=== PATIENT | female | born 1965 | race Caucasian/White ===

== ENCOUNTER 2021-11-26 12:07 | Emergency (ER) | payer OTHER, SELFPAY ==
--- NOTE | ~2021-11-26 | XR_ITS ---
EXAMINATION: XR chest 2V DATE: 11/26/2021 12:42 INDICATION: Cough TECHNIQUE: PA and lateral views of the chest are obtained. COMPARISON: None available FINDINGS: There are minimal airspace opacities in the perihilar regions and lung bases. There is no p leural effusion or pneumothorax. The cardiomediastinal silhouette is normal. There is moderate thorac ic spondylosis. IMPRESSION: 1. Bilateral perihilar and bibasilar airspace opacities, consistent with atelectasis versus pneumonia versus pulmonary edema. Reviewed, dictated and finalized at location A. IMPRESSION: 1. Bilateral perihilar and bibasilar airspace opacities, consistent with atelec tasis versus pneumonia versus pulmonary edema.
--- NOTE | 2021-11-26 12:11 | ED.URI ---
HPI - URI/Sore Throat General Chief Complaint: Upper Respiratory Infection Stated Complaint: cough with tight chest and ears Time Seen by Provider: 11/26/21 12:35 Source: patient and RN notes reviewed Mode of arrival: ambulatory Limitations: no limitations History of Present Illness HPI Narrative: 48-year-old female with history of asthma presents with concern for 3 to 4-day history of coughing, shortness of breath, chest heaviness and tightness, nasal congestion, ear pain and pressure. She reports her cough is productive. Reports she has been using her albuterol inhaler approximately 10 times per day. She denies fever, body aches, chills, sweats. Reports [id number] medications are not relieving her symptoms. Reports a history of pneumonia and bronchitis MD elicited complaint: cough and sore throat Related Data Home Medications Medication Instructions Recorded Confirmed Cymbalta 11/26/21 furosemide 11/26/21 gabapentin 11/26/21 hydrocodone-acetaminophen 11/26/21 meloxicam 11/26/21 potassium 11/26/21 Allergies Allergy/AdvReac Type Severity Reaction Status Date / Time No Known Allergies Allergy Unverified 11/26/21 12:26 Review of Systems Review of Systems: CONSTITUTIONAL: Reports malaise. Denies chills, sweats, or fever. EYES: Denies visual changes, redness, or discharge. ENT: Reports rhinorrhea, congestion, otalgia CARDIOVASCULAR: Denies chest pain, palpitations, or edema. RESPIRATORY: Reports persistent cough, chest heaviness, chest congestion, dyspnea. GASTROINTESTINAL: Denies abdominal pain, nausea, vomiting, diarrhea SKIN: Denies rash or itching. MUSCULOSKELETAL: Denies myalgia. NEUROLOGIC: Denies headache. All systems reviewed & are unremarkable except as noted in HPI and below [facility] Comments At time of signature, agree with nursing past medical, surgical, social and family history. There is no relevant family history pertinent to the presenting complaint Exam Narrative: GENERAL: Nontoxic-appearing and in no acute distress. HEAD: Normocephalic EYES: PERRLA, conjunctivae clear ENT: Nares clear, turbinates edematous and erythematous, clear discharge. Mucous membranes moist. TM not visible due to excess cerumen bilaterally; no tragal tenderness. Oropharynx not erythematous without lesions. Tonsils not enlarged and without exudate, no drooling, no hoarseness, no trismus, uvula midline. NECK: Supple. No lymphadenopathy CHEST: Clear to auscultation, breath sounds equal. No wheezing, rhonchi, rales, or stridor. No respiratory distress, speaks in full sentences. Cough noted HEART: Regular rate and rhythm. No murmur heard. SKIN: Warm, dry, no rash. NEURO: Alert and oriented x3. PSYCH: Normal mood and affect Course Course Emergency Course: Patient advised on ways to loosen and remove excess earwax at home. Patient is aware of diagnosis, understands and agrees to treatment plan. Anticipatory guidance given. Patient agrees to follow-up as directed and is aware of reasons to seek care at the emergency department. Portions of this record may have been created with voice recognition software Level of Care: Express Care Visit Vital Signs Vital signs: Reviewed. MDM - URI/Sore Throat MDM Narrative Medical decision making narrative: Differential diagnosis considered: Randall virus, strep pharyngitis, allergic rhinitis, upper respiratory tract infection, sinusitis, rhinosinusitis, nasopharyngitis. viral pharyngitis, otitis media, otitis externa, pneumonia, bronchitis, viral cough syndrome, viral syndrome, and influenza. Exam findings show no acute concerns or changes; patient is non-toxic appearing and is in no distress. Patient is appropriate for outpatient treatment and follow-up. Lab Data Attestation: I reviewed the patient's lab results. Critical Care Time Critical Care Time Critical Care Time: No Discharge Plan Discharge Clinical Impression: Abnormal chest x-ray Patient Disposition: Home,
[2021-11-26 12:16] VITALS: BP 133/55; PULSE 77; RESP 20; TEMP 36.7; O2SAT 97
== END 2021-11-26 13:08 | disposition home or self-care (01) ==
PROVIDERS: Emergency Provider Nurse Practitioner
DX: R91.8 Other nonspecific abnormal finding of lung field (principal); Z20.822 Contact with and (suspected) exposure to COVID-19
CPT/HCPCS: 71046; 87426; 87804; 99203; C9803; G0463

== ENCOUNTER 2022-04-09 12:26 | Emergency (ER) | payer OTHER, SELFPAY ==
[2022-04-09 12:30] VITALS: BP 147/78; PULSE 79; RESP 18; TEMP 36.8; O2SAT 97
--- NOTE | 2022-04-09 12:36 | ED.EAR ---
HPI - Ear Problem General Stated complaint: Ears cant hear Time Seen by Provider: 04/09/22 12:35 Source: patient Mode of arrival: ambulatory Limitations: no limitations History of Present Illness HPI Narrative: Erlinda is a 56-year-old female patient presenting to the clinic today with complaints of difficulty hearing. She reports that this is been ongoing for approximately 1 week. States she has tried to clean out her ears without success. Has had to get her ears cleaned out before for cerumen impaction but not has not recently had this done. Related Data Home Medications Medication Instructions Recorded Confirmed albuterol sulfate 90 mcg/actuation inhalation 04/09/22 aerosol inhaler bupropion HCl 150 mg tablet,12 hr mg PO 04/09/22 sustained-release cyclobenzaprine 10 mg tablet mg 04/09/22 duloxetine 60 mg capsule,delayed mg PO 04/09/22 release ergocalciferol (vitamin D2) 1,250 04/09/22 mcg (50,000 unit) capsule famotidine 20 mg tablet mg 04/09/22 furosemide 40 mg tablet mg 04/09/22 04/09/22 gabapentin 600 mg tablet mg 04/09/22 hydrocodone 7.5 mg-acetaminophen tablet 04/09/22 325 mg tablet hydroxyzine HCl 25 mg tablet mg 04/09/22 meloxicam 15 mg tablet mg 04/09/22 omeprazole 20 mg capsule,delayed mg 04/09/22 release pantoprazole 40 mg tablet,delayed mg PO 04/09/22 release potassium chloride 10 mEq meq PO 04/09/22 tablet,extended release sumatriptan succinate 100 mg tablet mg PO 04/09/22 zolpidem 5 mg tablet mg 04/09/22 Allergies Allergy/AdvReac Type Severity Reaction Status Date / Time No Known Allergies Allergy Unverified 04/09/22 12:34 Review of Systems Review of Systems: Pertinent positives per HPI. Patient denies any fever, chills, rash, headache, visual changes, dizziness, cough, runny nose, sore throat, shortness of breath, chest pain, palpitations, nausea, vomiting, diarrhea, constipation, abdominal pain, or any urinary issues. [facility] Comments At the time of my signature, I reviewed and agree with the nursing past medical, surgical, social, and family history. There is no relevant family history pertinent to the patient complaint. Exam Narrative: General: Well-developed, well nourished, in no apparent distress Head: Normocephalic, atraumatic Eyes: Pupils equally round and reactive to light bilaterally, EOM intact, sclera and conjunctive clear, no discharge, lids normal Ears: TMs intact and clear, bilateral cerumen impaction, ear irrigation was performed bilaterally, ear canals clear, no drainage, grossly hearing normal. Nose: Nares patent, no discharge, no inflammation, no sinus tenderness. Mouth: Oropharynx without lesions or masses, good dentition, MMM. Neck: Supple, trachea midline, no enlargement of anterior or posterior cervical nodes, no thyroid masses or goiter palpable. Cardio: Regular rate and rhythm, s1 and s2 normal, no murmur appreciated. Resp: Clear to auscultation bilaterally anteriorly and posteriorly, no rhonchi, rales, wheezing or rubs Course Course Emergency Course: Portions of this record may have been created with voice recognition software. Level of Care: Express Care Visit Vital Signs Vital signs: Vital Signs Temperature 36.8 C 04/09/22 12:30 Pulse Rate 79 04/09/22 12:30 Respiratory Rate 18 04/09/22 12:30 Blood Pressure 147/78 H 04/09/22 12:30 Pulse Oximetry 97 04/09/22 12:30 Oxygen Delivery Room Air 04/09/22 12:30 Temperature 36.8 C 04/09/22 12:30 Pulse Rate 79 04/09/22 12:30 Respiratory Rate 18 04/09/22 12:30 Blood Pressure 147/78 H 04/09/22 12:30 Pulse Oximetry 97 04/09/22 12:30 Oxygen Delivery Room Air 04/09/22 12:30 Vital signs reviewed Medical Decision Making [facility] Narrative Medical decision making narrative: At the time of visit patient is resting comfortably on the exam table. She has bilateral cerumen impaction. Debrox was used to help emulsify some of the earwax from
[2022-04-09] MEDS: CARBAMIDE PEROXIDE 6.5% OT SOLN 15 ML BTL 5 DROP EACH EAR (12:48)
== END 2022-04-09 13:15 | disposition home or self-care (01) ==
PROVIDERS: Emergency Provider Nurse Practitioner Family
DX: H61.23 Impacted cerumen, bilateral (principal); K21.9 Gastro-esophageal reflux disease without esophagitis; Z96.651 Presence of right artificial knee joint; F41.9 Anxiety disorder, unspecified; F32.A Depression, unspecified
CPT/HCPCS: 69209; 99213; A9270; G0463

== ENCOUNTER 2023-01-15 17:07 | Emergency (ER) | payer OTHER, SELFPAY ==
--- NOTE | ~2023-01-15 | XR_ITS ---
EXAMINATION: XR elbow LT min 3V DATE: 01/15/2023 17:28 INDICATION: Left elbow pain and bruising post injury 6 days prior TECHNIQUE: Anteroposterior, two oblique and lateral views of the left elbow were obtained. COMPARISON: None. FINDINGS: Alignment is normal. No fracture or joint effusion. Joint spaces are normal. Soft tissues are unremar kable. IMPRESSION: 1.. Negative left elbow radiographs. Reviewed, dictated and finalized at location A.
[2023-01-15 17:12] VITALS: BP 127/81; PULSE 89; RESP 20; TEMP 36.6; O2SAT 98
--- NOTE | 2023-01-15 17:28 | ED.UPPEXIN ---
HPI - Extremity Injury (Upper) General Chief Complaint: Extremity Injury, Upper Stated Complaint: left elbow pain Time Seen by Provider: 01/15/23 17:28 Source: patient, RN notes reviewed and old records reviewed Mode of arrival: ambulatory Limitations: no limitations History of Present Illness HPI narrative: 57-year-old female presents to the [facility] with left elbow pain and bruising after she fell 3 days ago landing on her elbow. Denies any head. No loss of consciousness. Has full range of motion. Positive radial pulse. 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 Full range of motion of the wrist as well as the shoulder. Related Data Home Medications Medication Instructions Recorded Confirmed albuterol sulfate 90 mcg/actuation 2 puff inhalation Q4H PRN SOB 04/09/22 01/15/23 aerosol inhaler bupropion HCl 150 mg tablet,12 hr 150 mg PO BID 04/09/22 01/15/23 sustained-release cyclobenzaprine 10 mg tablet 10 mg PO TID PRN Pain 04/09/22 01/15/23 duloxetine 60 mg capsule,delayed 60 mg PO BID 04/09/22 01/15/23 release ergocalciferol (vitamin D2) 1,250 1,250 mcg PO WEEKLY 04/09/22 01/15/23 mcg (50,000 unit) capsule famotidine 20 mg tablet 20 mg PO BID 04/09/22 01/15/23 furosemide 40 mg tablet 40 mg PO DAILY 04/09/22 01/15/23 gabapentin 600 mg tablet 600 mg PO TID 04/09/22 01/15/23 hydrocodone 7.5 mg-acetaminophen 1 tablet PO Q6H PRN Pain 04/09/22 01/15/23 325 mg tablet hydroxyzine HCl 25 mg tablet 25 mg PO TID PRN Anxiety 04/09/22 01/15/23 omeprazole 20 mg capsule,delayed 20 mg PO DAILY 04/09/22 01/15/23 release pantoprazole 40 mg tablet,delayed 40 mg PO DAILY 04/09/22 01/15/23 release potassium chloride 10 mEq 10 meq PO DAILY 04/09/22 01/15/23 tablet,extended release sumatriptan succinate 100 mg tablet See Rx Instructions .Route .COMPLEX 04/09/22 01/15/23 zolpidem 5 mg tablet 5 mg PO DAILY 04/09/22 01/15/23 verapamil 100 mg capsule 24hr 100 mg PO DIRECTED 01/15/23 01/15/[address],ext.release Allergies Allergy/AdvReac Type Severity Reaction Status Date / Time No Known Allergies Allergy Verified 01/15/23 17:17 Review of Systems Review of Systems: All systems reviewed & are unremarkable except as noted in HPI and below Constitutional: Constitutional: Reports no additional constitutional complaints Eyes: Eyes: Reports no additional eye complaints ENT: Reports system reviewed and no additional complaints, except as documented Cardiovascular: Cardiovascular: Reports no additional cardiovascular complaints, Denies chest pain and Denies dyspnea Respiratory: Respiratory: Reports no additional respiratory complaints, Denies chest congestion, Denies cough and Denies dyspnea Gastrointestinal: Gastrointestinal: Reports no additional gastrointestinal complaints, Denies abdominal pain, Denies nausea and Denies vomiting Musculoskeletal: Musculoskeletal: Reports as per HPI Integumentary/Breasts: Skin/Breast: Reports system reviewed and no additional complaints, except as docu Neurologic: Reports system reviewed and no additional complaints, except as documented Psychiatric: Psychiatric: Reports no additional psychiatric complaints Allergic/Immunologic: Allergic/Immunologic: Reports no additional allergic/immunologic complaints PMFSH Past Medical History Medical History (Updated 01/15/23 @ 18:17 by Carmen Madera, PEDRO) Anxiety and depression Breast cancer H/O gastroesophageal reflux (GERD) Comments At the time of my signature, I reviewed and agree with the nursing past medical, surgical, social, and family history. There is no relevant family history pertinent to the patient complaint. Exam Const: General: cooperative, healthy appearing, comfortable, no acute distress, well developed, alert and well nourished Nutritional Appearance: well nourished Orientation/consciousness: patient oriented x3 Limitations: no limitations HENMT: Head: normal to inspection Ears: hearing
== END 2023-01-15 17:48 | disposition home or self-care (01) ==
PROVIDERS: Emergency Provider Nurse Practitioner
DX: S50.02XA Contusion of left elbow, initial encounter (principal); W19.XXXA Unspecified fall, initial encounter; F41.9 Anxiety disorder, unspecified; F32.A Depression, unspecified; K21.9 Gastro-esophageal reflux disease without esophagitis; Z85.3 Personal history of malignant neoplasm of breast
CPT/HCPCS: 73080; 99213; G0463